=== PATIENT | male | born 1965 | race Two or more races ===

== ENCOUNTER 2024-12-12 12:12 | Emergency (ER) | payer SELFPAY ==
[~2024-12-12] VITALS: Ht 175.3 cm; Wt 88.6 kg
[2024-12-12 12:14] VITALS: TEMP 98
[2024-12-12] MEDS: ACETAMINOPHEN 500 MG TABLET PO ONE (15:14)
[2024-12-12 16:00] VITALS: BP 141/85; PULSE 83; RESP 16; O2SAT 99
[2024-12-12] MEDS ORDERED: IBUP-1492 PO (16:15)
[2024-12-12] MEDS ORDERED: ACET-3385 PO (16:15)
== END 2024-12-12 16:25 | disposition home or self-care (01) ==
LOC: EMS 12:12
DX: S06.0X0A Concussion without loss of consciousness, initial encounter (principal); Z88.0 Allergy status to penicillin; V89.2XXA Person injured in unspecified motor-vehicle accident, traffic, initial encounter; Y93.89 Activity, other specified; Y92.410 Unspecified street and highway as the place of occurrence of the external cause; Y99.8 Other external cause status
CPT/HCPCS: 70450; 72125; 99284